=== PATIENT | male | born 1985 | race Caucasian/White ===

== ENCOUNTER 2020-10-17 00:34 | Observation (INO) ==
[2020-10-17] MEDS ORDERED: SODIUM CHLORIDE 0.9% 1,000 ML IV STA (01:08)
[2020-10-17] MEDS ORDERED: ACETAMINOPHEN 325 MG TABLET PO PRN (03:14)
[2020-10-17] MEDS ORDERED: MORPHINE 4 MG/1 ML VIAL IV PRN (03:14)
[2020-10-17] MEDS ORDERED: ONDANSETRON 4 MG/2 ML VIAL IV PRN ×2 (03:14→13:12)
[2020-10-17] MEDS: LACTATED RINGERS 1,000 ML IV SCH ×2 (04:08→17:20)
[2020-10-17] MEDS: PIPERACILLIN/TAZOBACTAM 3,375 MG in SODIUM CHLORIDE 0.9% 100 ML IV SCH ×3 (04:09→20:28)
[2020-10-17] MEDS ORDERED: INFLUENZA VIRUS VACCINE 0.5 ML SYRINGE IM ONE (04:46)
[2020-10-17] MEDS ORDERED: TISSUE ADHESIVE 1 EACH APPLICATOR TOP ONE (07:22)
[2020-10-17] MEDS ORDERED: BUPIVACAINE MPF 0.25% 30 ML VIAL ONE (07:22)
[2020-10-17] MEDS ORDERED: LIDOCAINE MPF 1% /EPI 30 ML VIAL ONE (07:23)
[2020-10-17] MEDS: PANTOPRAZOLE 40 MG TABLET PO SCH (08:00)
[2020-10-17] MEDS ORDERED: fentaNYL 100 MCG/2 ML VIAL ONE (08:06)
[2020-10-17] MEDS ORDERED: LIDOCAINE 2% 5 ML VIAL ONE (08:07)
[2020-10-17] MEDS ORDERED: propofoL 200 MG/20 ML VIAL IV ONE (08:07)
[2020-10-17] MEDS ORDERED: MIDAZOLAM 2 MG/2 ML VIAL ONE (08:07)
[2020-10-17] MEDS ORDERED: ROCURONIUM 50 MG/5 ML VIAL IV ONE (08:07)
[2020-10-17] MEDS ORDERED: SEVOFLURANE 1 UNIT/15 MINUTE INH ONE ×2 (08:07→13:10)
[2020-10-17] MEDS ORDERED: ONDANSETRON 4 MG/2 ML VIAL ONE (12:18)
[2020-10-17] MEDS ORDERED: SUCCINYLCHOLINE 200 MG/10 ML VIAL ONE (12:19)
[2020-10-17] MEDS ORDERED: LACTATED RINGERS 1,000 ML IV ONE (12:39)
[2020-10-17] MEDS ORDERED: SUGAMMADEX 200 MG/2 ML VIAL IV ONE (12:50)
[2020-10-17] MEDS ORDERED: HYDROmorphone 2 MG/1 ML VIAL IV PRN (13:12)
[2020-10-17] MEDS ORDERED: MEPERIDINE 25 MG/1 ML VIAL IV PRN (13:12)
[2020-10-17] MEDS ORDERED: diphenhydrAMINE 50 MG/1 ML VIAL IV PRN (13:12)
[2020-10-17] MEDS ORDERED: PROMETHAZINE INJ 25 MG in SODIUM CHLORIDE 0.9% 50 ML IV PRN (13:12)
[2020-10-18] MEDS: PIPERACILLIN/TAZOBACTAM 3,375 MG in SODIUM CHLORIDE 0.9% 100 ML IV SCH (03:40)
[2020-10-18] MEDS: LACTATED RINGERS 1,000 ML IV SCH ×2 (03:44→10:25)
[2020-10-18 07:26] LABS: Basophils % 0.3 % (0.0-0.8); Eosinophils # 0.1 10*3/uL (0.0-0.87); Eosinophils % 0.9 % (0.00-10.9); Hematocrit 40.9 VOL% (42.0-52.0); Hemoglobin 13.6 GM/DL (14.0-18.0); Immature Granulocytes % 0.4 %; Immature Granulocytes Absolute 0.04 #; Lymphocytes # 1.9 10*3/uL (1.4-4.0); Lymphocytes % 19.1 % (21.2-54.2); Mean Corpuscular HGB Conc 33.3 GM/DL (32-36); Mean Corpuscular Volume 89.5 FL (87-102); Mean Platelet Volume 10.6 FL (9.6-12.0); Monocytes % 9.8 % (1.7-12.7); Neutrophils % 69.5 % (38.7-73.9); Platelet Count 234 T/CUMM (130-400); Red Blood Count 4.57 MC/CUMM (3.8-5.5); Red Cell Distribution Width 15.3 % (9.3-17.3); White Blood Count 9.8 T/CUMM (4-12)
[2020-10-18 08:02] VITALS: BP 130/68
[2020-10-18] MEDS: PANTOPRAZOLE 40 MG TABLET PO SCH (10:01)
== END 2020-10-18 10:18 | disposition home or self-care (01) ==
LOC: N.EDINP 00:34 → N.ED 00:34 → N.3E 02:54
PROVIDERS: ADMIT Student in an Organized Health Care Education/Training Program; ATTEND Student in an Organized Health Care Education/Training Program